=== PATIENT | female | born 1980 | race Caucasian/White ===

== ENCOUNTER 2021-03-18 17:21 | Emergency (ER) | payer OTHER, SELFPAY ==
[2021-03-18 17:28] VITALS: BP 143/70; PULSE 93; RESP 16; TEMP 36.6; O2SAT 99; BMI 46.5
--- NOTE | 2021-03-18 17:30 | DI.RAD.S_ITS ---
PROCEDURE: XR ANKLE LT MIN 3V INDICATIONS: Rolled left ankle, pain, swelling can't bear weight TECHNIQUE: Three views of the ankle were acquired. COMPARISON: None. FINDINGS: Bones: No fractures or dislocations. Ankle mortise is normally aligned. No suspicious bony lesions. Soft tissues: No tibiotalar joint effusion. Achilles tendon appears normal. IMPRESSION: No visible fractures. Dictated by: Coretta Reddy M.D. on 03/18/2021 at 17:50 Approved by: Coretta Reddy M.D. on 03/18/2021 at 17:57
--- NOTE | 2021-03-18 18:39 | ED_ITS ---
HPI - Extremity Injury (Lower) General Chief Complaint: Extremity Injury, Lower Stated Complaint: lt ankle injury Time Seen by Provider: 03/18/21 18:28 Mode of arrival: Wheelchair History of Present Illness HPI Narrative: 40-year-old female nonsmoker with noncontributory medical history presents with her in the chief complaint of a left ankle injury suffered earlier this evening. She states she was walking and her ankle rolled and she felt a pop. She now has pain with ambulation and palpation. She denies any numbness, tingling or weakness. She denies any pain in her knee or hip. Related Data Allergies Allergy/AdvReac Type Severity Reaction Status Date / Time No Known Drug Allergies Allergy Verified 03/18/21 17:29 Review of Systems Review of Systems Narrative: GENERAL: Denies chills, fatigue, malaise, fever, sweats. HEENT: Denies sinus pain, ear pain, sore throat, difficulty swallowing, dizziness. RESPIRATORY: Denies dyspnea, cough, wheezing, hemoptysis, sputum. CARDIOVASCULAR: Denies chest pain, palpitations, orthopnea, edema, GASTROINTESTINAL: Denies nausea, vomiting, abdominal pain, diarrhea, constipation, melena. : Denies dysuria, frequency, incontinence, hematuria, urinary retention. MUSCULOSKELETAL: See HPI SKIN: Denies rash, skin lesions, or other NEUROLOGIC: Denies weakness, headache, numbness, change in speech, confusion, seizures, incoordination. PSYCHIATRIC: No concerning psychosocial issues. 12 point review of systems is negative except for those stated above Patient History Social History Smoking Status: Never smoker Smoking Status: Never smoker Substance Use Type: does not use Exam Narrative Exam Narrative: GEN: AOx3 and in mild distress EYES: Pupils are equal, round, and reactive to light and accommodation. Extraoccular muscles are intact bilaterally. There is no subconjunctival hemorrhage or exudate. CHEST: Lungs are clear to auscultation bilaterally and free of wheezes, rales, or rhonchi. Heart rate is regular rhythm, there are no murmurs, clicks, rubs, or gallops. There is no chest wall tenderness. ABD: Abdomen is soft and nontender. There is no guarding or rebound. Bowel sounds are normal in all 4 quadrants. There is no mass or organomegaly. EXT: Decreased range of motion of left ankle secondary to pain. There is some mild swelling overlying lateral malleolus. This is closed, isolated and neurovascularly intact. There is no obvious ligamentous instability SKIN: Warm, pink, and dry. No erythema or rash Initial Vital Signs Initial Vital Signs: Vital Signs Temperature 97.9 F 03/18/21 17:28 Pulse Rate 93 H 03/18/21 17:28 Respiratory Rate 16 03/18/21 17:28 Blood Pressure 143/70 H 03/18/21 17:28 Pulse Oximetry 99 03/18/21 17:28 Course Orders Ordered: ED Orders 03/18/21 17:30 XR ankle LT min 3V Stat Vital Signs Vital signs: Vital Signs - 8 hr 03/18/21 17:28 Temperature 97.9 F Pulse Rate 93 H Respiratory Rate 16 Blood Pressure 143/70 H Pulse Oximetry 99 MDM - Extremity Injury (Lower) Imaging Data Extremity x-ray #1: Radiologist's Impression: [address] [address] XRay Report Signed Patient: Rodo Marshall MR#: [id number] : 1980 Acct:[id number] Age/Sex: 40 / F Date of Service: 03/18/21 Loc: ED Accession Number: [id number] ?? Procedure: XR ankle LT min 3V Ordering Provider: Елена Costa D.O. PROCEDURE:? XR ANKLE LT MIN 3V ? INDICATIONS:? Rolled left ankle, pain, swelling can't bear weight ? TECHNIQUE:? Three views of the ankle were acquired.? ? COMPARISON:? None. ? FINDINGS:? ? Bones:? No fractures or dislocations.? Ankle mortise is normally aligned.? No suspicious bony lesions.? ? Soft tissues:? No tibiotalar joint effusion.? Achilles tendon appears normal.? ? ? IMPRESSION:? No visible fractures. ? Dictated by: Coretta Reddy M.D. on 03/18/2021 at 17:50 ? ? Approved by: Coretta Reddy M.D. on 03/18/2021 at 17:57 ? [facility] Narrative Medical decision making narrative: Patient with reassuring physical exam and x- ray. There is no neurovascular compromise and no ligamentous instability to suggest significant soft tissue injury. The injury is closed, isolated and neurovascularly intact. Extensive discussion with patient regarding need for weight-bearing only as tolerated and follow-up. The patient already has crutches and ortho boot at home and would prefer not to get another 1. She has been given return precautions and has had questions answered to her apparent satisfaction Discharge Plan Departure Patient Disposition: Home Clinical Impression: Ankle sprain and strain Instructions: DI for Ankle Sprain Activity Restrictions/Additional Instructions: *You have been diagnosed with [left ankle sprain. Physical exam and x-ray are very reassuring and there is no evidence of fracture or dislocation *What to do: *Please continue to take your regular medications as directed. [ ] New medication prescriptions sent to your pharmacy: [ ] [ ] New medication written as a paper prescription [x ] No new medications given *Please follow up with your primary care provider in 2-3 days, call for an appointment. Let them know you were seen in the Emergency Department and that we ask that you be seen in follow up. We will electronically transmit a record of today's note if your PCP is in our system NO WEIGHT BEARING until pain improves Please use your crutches as we discussed. Also, if you choose to use your ortho boot at home, please take it off a few times daily and take your ankle through a full range of motion *If you do not have a primary care provider please contact the [facility] Resource line at [phone]. They will ask some questions about your medical history and help get you set up with a doctor in the community. *Return to Emergency Department if you should have any new, worsening or concerning symptoms, such as [fever greater than 101 F, shaking chills, worsening pain, persistent vomiting or other bothersome symptoms] Stand Alone Forms: Work Release Note
== END 2021-03-18 19:04 | disposition home or self-care (01) ==
PROVIDERS: Emergency Provider Emergency Medicine
DX: S93.402A Sprain of unspecified ligament of left ankle, initial encounter (principal); X50.1XXA Overexertion from prolonged static or awkward postures, initial encounter; Y93.01 Activity, walking, marching and hiking
CPT/HCPCS: 73610; 99281; 99283